=== PATIENT | male | born 1960 | race Caucasian/White ===

== ENCOUNTER 2022-08-18 13:06 | Emergency (ER) | payer OTHER, MEDICARE ==
[2022-08-18 13:51] VITALS: BP 120/86; PULSE 86; TEMP 98.2; BMI 27.2
[2022-08-18 14:05] VITALS: RESP 20
== END 2022-08-18 14:27 | disposition home or self-care (01) ==
LOC: FER 13:06
DX: R00.2 Palpitations (principal); I48.91 Unspecified atrial fibrillation
CPT/HCPCS: 93005; 99283-25